=== PATIENT | female | born 1965 | race Caucasian/White ===

== ENCOUNTER → 2023-05-31 09:50 | Outpatient (CLI) | payer OTHER, SELFPAY ==
--- NOTE | 2023-05-31 | DI.RAD.S_ITS ---
Bone Density Report Name: STEVE ORLANDO Age: 58 Sex: Female Ethnicity: White Date of : 1965 Indication: postmenopausal; screening for osteoporosis; Referring Provider: CHAPARRO OLIVERA Study: Bone densitometry was performed. Exam Date: May 31, 2023 Accession number: [id number] Bone Density: Region BMD T-score Z-score Classification AP Spine(L1-L4) 0.980 -0.6 0.8 Normal Femoral Neck (Left) 0.784 -0.6 0.7 Normal Total Hip (Left) 0.943 0.0 1.0 Normal Femoral Neck (Right) 0.774 -0.7 0.6 Normal Total Hip (Right) 0.889 -0.4 0.5 Normal Total Hip Mean 0.916 -0.2 0.8 Normal World Health Organization criteria for BMD impression classify patients as: Normal (T-score at or above -1.0), Osteopenia (T-score between -1.0 and -2.5), or Osteoporosis (T-score at or below -2.5). 10-year Fracture Risk: FRAX not reported because: All T-scores for Spine Total, Hip Total, Femoral Neck at or above -1.0 Impression: The patient has normal bone mass. Discussion: BONE DENSITY IS ABOVE THE MINIMUM DESIRABLE LEVEL AT ALL SKELETAL SITES TESTED. This patient's bone mineral density is above the minimum desirable level (T-score -1.0 or better) at all sites measured. The patient should follow a healthful lifestyle (good nutrition with adequate calcium and vitamin D, and appropriate weight-bearing exercise). Follow-Up: Consider repeating this study in 5 years or sooner if there is some new clinical indication. Reported by: SOLOMON BERG MD on 05/31/2023 10:13:00 AM.
== END ==
LOC: RAD 09:52
PROVIDERS: PCP Student in an Organized Health Care Education/Training Program; Referring Provider Student in an Organized Health Care Education/Training Program; Visit Provider Student in an Organized Health Care Education/Training Program
DX: N95.9 Unspecified menopausal and perimenopausal disorder (principal); E55.9 Vitamin D deficiency, unspecified; Z13.820 Encounter for screening for osteoporosis
CPT/HCPCS: 77080

== ENCOUNTER → 2023-12-31 15:02 | Outpatient (CLI) | payer SELFPAY | PROVIDERS: PCP Student in an Organized Health Care Education/Training Program; Visit Provider Specialist | DX: R35.0 Frequency of micturition (principal); R30.0 Dysuria | CPT/HCPCS: 87086 ==